=== PATIENT | female | born 1950 | race Caucasian/White ===

== ENCOUNTER 2016-10-13 19:15 | Inpatient (IN) | payer OTHER ==
[~2016-10-13] VITALS: Ht 160 cm; Wt 76.0 kg
[~2016-10-13 19:15] MED LIST: NO MEDS
[2016-10-13] MEDS ORDERED: OCTREOTIDE 50 MCG in SOD CHLORIDE 0.9% 25 ML IVPB STA (19:56)
[2016-10-13] MEDS ORDERED: PANTOPRAZOLE IV 80 MG in SOD CHLORIDE 0.9% 100 ML IVPB STA (19:56)
[2016-10-13] MEDS ORDERED: CEFTRIAXONE 1 GM/50 ML (PMX) 50 ML IVPB STA (19:56)
[2016-10-13] MEDS ORDERED: SOD CHLORIDE 0.9% 500 ML IV STA (19:56)
[2016-10-13] MEDS ORDERED: OCTREOTIDE 500 MCG in SOD CHLORIDE 0.9% 49 ML IV STA (19:56)
[2016-10-13] MEDS ORDERED: OMEG-135 PO (20:26)
[2016-10-13 20:31] LABS: BASOPHILS % 0.3 % (0.0-2.0); EOSINOPHILS # 0.2 10^3/ul (0.0-0.5); HEMATOCRIT 22.6 % (37.0-47.0); HEMOGLOBIN 7.6 g/dl (12.0-16.0); LYMPHOCYTES # 2.1 10^3/ul (0.8-2.9); LYMPHOCYTES % 37.2 % (15.0-51.0); MEAN CORPUSCULAR HEMOGLOBIN 31.7 pg (29.0-33.0); MEAN CORPUSCULAR HGB CONC 33.6 g/dl (32.0-37.0); MEAN CORPUSCULAR VOLUME 94.2 fl (82.0-101.0); MEAN PLATELET VOLUME 10.6 fl (7.4-10.4); MONOCYTE # 0.6 10^3/ul (0.3-0.9); MONOCYTES % 10.3 % (0.0-11.0); NEUTROPHIL # 2.8 10^3/ul (1.6-7.5); PLATELET COUNT 126 10^3/UL (140-415); RED CELL DISTRIBUTION WIDTH 13.5 % (11.5-14.5); WHITE BLOOD COUNT 5.7 10^3/ul (4.8-10.8)
[2016-10-13] MEDS ORDERED: CHOL500010 PO (20:34)
[2016-10-13] MEDS ORDERED: GINK120T3 PO (20:35)
[2016-10-13] MEDS ORDERED: MULTI PO (20:36)
[2016-10-13] MEDS ORDERED: VIT1TABL46 PO (20:37)
[2016-10-13] MEDS ORDERED: SOD CHLORIDE 0.9% 250 ML IV ONE (20:41)
[2016-10-13] MEDS ORDERED: VITA1TAB83 PO (20:42)
[2016-10-13 20:56] LABS: INR 0.99; PROTIME 13.1 Sec (12.2-14.2)
[2016-10-13 20:57] LABS: PARTIAL THROMBOPLASTIN TIME 26.1 Sec (25.0-35.0)
--- NOTE | 2016-10-13 20:58 | RADRPT ---
PROCEDURE: Portable chest x-ray. CLINICAL INDICATION: Upper GI bleed. TECHNIQUE: Portable AP view of the chest. COMPARISON: None. FINDINGS: No pulmonary edema or conolidation is identified. The cardiac silhouette is magnified. No pleural effusion is seen. There is no pneumothorax. IMPRESSION: 1. No evidence of acute cardiopulmonary disease. RPTAT: HTAR .Jarvis Smith MD, MD Date Time Electronically viewed and signed by .Jarvis Smith MD, on 10/13/2016 20:57 .R/
[2016-10-13 21:06] LABS: ALANINE AMINOTRANSFERASE 112 IU/L (13-69); ALBUMIN 3.5 g/dl (3.3-4.9); ALBUMIN/GLOBULIN RATIO 1.16; ALKALINE PHOSPHATASE 160 IU/L (42-121); ANION GAP 16 (8-16); ASPARTATE AMINO TRANSFERASE 136 IU/L (15-46); BILIRUBIN,INDIRECT 0.3 mg/dl (0-1.1); BILIRUBIN,TOTAL 0.3 mg/dl (0.2-1.3); BLOOD UREA NITROGEN 17 mg/dl (7-20); CALCIUM 9.1 mg/dl (8.4-10.2); CARBON DIOXIDE 29 mmol/L (21-31); CHLORIDE 100 mmol/L (97-110); GLUCOSE 116 mg/dl (70-220); SODIUM 141 mmol/L (135-144); TOTAL PROTEIN 6.5 g/dl (6.1-8.1)
[2016-10-13 21:41] LABS: TROPONIN-I < 0.012 ng/ml (0.00-0.12)
[2016-10-13] MEDS ORDERED: ACETAMINOPHEN 325 MG TAB PO PRN (22:00)
[2016-10-13] MEDS ORDERED: ONDANSETRON 4 MG INJ IV PRN (22:00)
--- NOTE | 2016-10-13 22:30 | ERA ---
ER Documentation Chief Complaint Date/Time DATE: 10/13/16 TIME: 22:23 Chief Complaint vomiting blood/blood in stool x 1 day, referred by pmd, hx of liver ca HPI 66-year-old female with a history of liver cancer presenting with 4 days of dark , tarry stools and one episode of coffee-ground emesis yesterday. She spoke with her primary care doctor, who sent her to the ED. She denies any chest pain , shortness of breath, headache, dizziness. She has never had these symptoms before. She denies any NSAID use. She has never had an endoscopy, so it is unknown if she has a history of varices. Currently she only complains of very minimal epigastric pain that is nonradiating. ROS All systems reviewed and are negative except as per history of present illness. Medications Home Meds Reported Medications Vitamin B Complex* (Vitamin B Complex*) 1 Each Tablet, 1 TAB PO DAILY, TAB ADULT GUMMIES 10/13/16 Multivitamins* (Theragran*) 1 Tab Tab, 1 TAB PO DAILY, TAB WOMEN 50+ 10/13/16 Ginkgo Biloba* (Ginkgo Biloba*) 120 Mg Tablet, 120 MG PO DAILY, TAB 10/13/16 Cholecalciferol (Vitamin D3) 5,000 Unit Tablet, 5000 UNIT PO DAILY, TAB 10/13/16 Webster-3 Fatty Acids/Fish Oil (Fish Oil 1,000 mg Capsule) 1 Each Capsule, 2 CAP PO BID, CAP 10/13/16 Discontinued Reported Medications Vitamin B Complex (B Complex # 1) 1 Each Tablet, 1 EACH PO, TAB 10/13/16 [No Meds] No Conflict Check 10/29/15 Allergies Allergies: Coded Allergies: No Known Allergy (Unverified , 10/13/16) PMhx/Soc History of Surgery: Yes (liver tumor removed, open choley) Anesthesia Reaction: No Hx Neurological Disorder: No Hx Respiratory Disorders: No Hx Cardiac Disorders: No Hx Psychiatric Problems: No Hx Miscellaneous Medical Probl: Yes (LIVER CA) Hx Alcohol Use: No Hx Substance Use: No Hx Tobacco Use: No Smoking Status: Never smoker FmHx Family History: No diabetes Physical Exam Vitals Vital Signs Date Time Temp Pulse Resp B/P Pulse Ox O2 Delivery O2 Flow Rate FiO2 10/13/16 19:50 98.0 91 20 147/64 100 Room Air 10/13/16 19:19 98.0 95 20 133/60 98 Physical Exam Const: Well-appearing, pleasant, no apparent distress Head: Atraumatic Eyes: Normal Conjunctiva ENT: Normal External Ears, Nose and Mouth. No scleral icterus Neck: Full range of motion..~ No meningismus. Resp: Clear to auscultation bilaterally Cardio: Regular rate and rhythm, no murmurs Abd: Soft, non tender, non distended. No obvious ascites. Normal bowel sounds Skin: No petechiae or rashes, no jaundice Back: No midline or flank tenderness Ext: No cyanosis, or edema Neur: Awake and alert and oriented 3, cranial nerves intact, strength and sensations intact in all 4 extremities Psych: Normal Mood and Affect Result Diagram: 10/13/16201910/13/162019 Results 24 hrs Laboratory Tests Test 10/13/16 20:20 White Blood Count 5.710^3/ul Red Blood Count 2.4010^6/ul Hemoglobin 7.6g/dl Hematocrit 22.6% Mean Corpuscular Volume 94.2fl Mean Corpuscular Hemoglobin 31.7pg Mean Corpuscular Hemoglobin Concent 33.6g/dl Red Cell Distribution Width 13.5% Platelet Count 53878^3/UL Mean Platelet Volume 10.6fl Neutrophils % 49.0% Lymphocytes % 37.2% Monocytes % 10.3% Eosinophils % 3.0% Basophils % 0.3% Nucleated Red Blood Cells % 0.0/100WBC Neutrophils # 2.810^3/ul Lymphocytes # 2.110^3/ul Monocytes # 0.610^3/ul Eosinophils # 0.210^3/ul Basophils # 0.010^3/ul Nucleated Red Blood Cells # 0.010^3/ul Prothrombin Time 13.1Sec Prothrombin Time Ratio 1.0 INR International Normalized Ratio 0.99 Activated Partial Thromboplast Time 26.1Sec Sodium Level 141mmol/L Potassium Level 4.0mmol/L Chloride Level 100mmol/L Carbon Dioxide Level 29mmol/L Anion Gap 16 Blood Urea Nitrogen 17mg/dl Creatinine 0.80mg/dl Glucose Level 116mg/dl Calcium Level 9.1mg/dl Total Bilirubin 0.3mg/dl Direct Bilirubin 0.00mg/dl Indirect Bilirubin 0.3mg/dl Aspartate Amino Transf (AST/SGOT) 136IU/L Alanine Aminotransferase (ALT/SGPT) 112IU/L Alkaline Phosphatase 160IU/L Troponin I < 0.012ng/ml Total Protein 6.5g/dl Albumin 3.5g/dl Globulin 3.00g/dl Albumin/Globulin Ratio 1.16 Lipase 451U/L Current Medications Medications (Trade) Dose Ordered Sig/Siobhan Route PRN Reason Start Time Stop Time Status Last Admin Dose Admin Sodium Chloride 500 ml @ 500 mls/hr Q1H STAT IV 10/13/16 19:56 10/13/16 20:55 DC 10/13/16 20:37 Pantoprazole 80 mg/Sodium Chloride 100 ml @ 400 mls/hr ONCE STAT IVPB 10/13/16 19:56 10/13/16 20:10 DC 10/13/16 20:54 Octreotide Acetate 50 mcg/ Sodium Chloride 26 ml @ 100 mls/hr Q16M STAT IVPB 10/13/16 19:56 10/13/16 20:11 DC 10/13/16 20:55 Octreotide Acetate 500 mcg/ Sodium Chloride 50 ml @ 5 mls/hr ONCE STAT IV 10/13/16 19:56 10/14/16 05:55 10/13/16 21:09 Ceftriaxone Sodium 50 ml @ 100 mls/hr ONCE STAT IVPB 10/13/16 19:56 10/13/16 20:25 DC 10/13/16 20:37 Sodium Chloride (NS) 250 ml @ 0 mls/hr Q0M ONCE IV 10/13/16 20:41 10/13/16 20:44 DC 10/13/16 21:25 Ondansetron HCl (Zofran Inj) 4 mg ER BRIDGE PRN IV NAUSEA AND/OR VOMITING 10/13/16 22:00 10/14/16 21:59 Acetaminophen (Tylenol Tab) 650 mg ER BRIDGE PRN PO MILD PAIN/FEVER 10/13/16 22:00 10/14/16 21:59 Procedures/MDM EMERGENT LABS AND DIAGNOSTIC STUDIES: Lab Results above were reviewed and interpreted by me. CBC: Anemia, mild thrombocytopenia CMP: No evidence of electrolyte abnormality, renal failure, hypoglycemia. Transaminitis noted Lipase: no evidence of pancreatitis Troponin within normal limits 12-lead EKG was interpreted by Van Robledo MD: Normal Sinus Rhythm Normal axis Normal intervals No acute ST or T wave changes suggestive of acute ischemia or STEMI. Radiology Results as interpreted by Radiology below were reviewed by Kolton Robledo MD: Chest x-ray shows no acute abnormalities Initial Nursing notes reviewed. Previous Medical Records requested via the Electronic Health Record. EMERGENCY DEPARTMENT COURSE / MEDICAL DECISION MAKING: Patient is presenting with symptoms of an upper GI bleed. She is hemodynamically stable at this time with no active hematemesis. IV fluids were started. She was started on IV pantoprazole and octreotide. Rocephin was given prophylactically for possible variceal bleed. Her labs showed evidence of anemia of 7.6. 1 unit of PRBCs was ordered and transfused. Patient will be admitted for further GI workup. She is stable for telemetry at this time. I spoke with the admitting doctor, who agrees. Critical Care Time: 35 minutes Treatments/Evaluations: Close monitoring and treatment of unstable vital signs, cardiorespiratory, and neurologic status, while maintaining tight balance of fluid, respiratory, and cardiac interventions. This time includes discussing the case with the patient and the patients family. This time does not include all procedures stated elsewhere in this record. This time also includes reviewing old records, labs and radiological studies. This time includes examining and re-examining the patient. Additionally, this time also includes arranging care with admitting and consulting physicians. Accepting Care Team: Current data and ongoing care discussed. Time: Time of admission Primary Provider: Juan Jose Lee Consulting: none Outstanding Data: none Departure Diagnosis: Primary Impression: Upper GI bleeding Additional Impression: Anemia Qualified Code: D64.9 - Anemia, unspecified type Condition: Serious CHARIS ROBLEDO MD Oct 13, 2016 22:30
[2016-10-14] VITALS (16 sets, daily range): BP systolic 102–127; BP diastolic 56–66; PULSE 61–83; RESP 17–22; TEMP 98; Ht 160 cm; Wt 76.0 kg
[2016-10-14] MEDS: DEXTROSE 5%-0.45% NACL 1,000 ML IV SCH ×4 (00:45→22:33)
[2016-10-14] MEDS ORDERED: morphine 2 MG INJ IV PRN (01:00)
[2016-10-14] MEDS ORDERED: NACL 0.9% 3 ML SYG IV SCH (01:00)
[2016-10-14] MEDS ORDERED: MAGNESIUM HYDROXIDE 30ML CUP PO PRN (01:00)
[2016-10-14] MEDS ORDERED: DOCUSATE SODIUM 100 MG CAP PO PRN (01:00)
[2016-10-14] MEDS ORDERED: ACETAMINOPHEN 325 MG TAB PO PRN (01:00)
[2016-10-14] MEDS ORDERED: ONDANSETRON 4 MG INJ IV PRN (01:00)
[2016-10-14] MEDS: PANTOPRAZOLE 40 MG INJ IV SCH (07:00)
--- NOTE | 2016-10-14 11:05 | HP ---
Date/Time of Note Date/Time of Note DATE: 10/14/16 TIME: 11:00 Assessment/Plan VTE Prophylaxis VTE Prophylaxis Intervention: SCD's Lines/Catheters IV [facility]from [facility] Saline Lock Urinary Cath still in place: No Assessment/Plan Chief Complaint/Hosp Course 1. Anemia 2. Hematoemesis 3. Hs of black stool 4. Obesity 5. Hypertension, controlled 6. hx of liver cancer 7. S/p open chelecystectomy 8. S/p polyp removal 2015 Problems: HPI/ROS Admit Date/Time Admit Date/Time Oct 13, 2016 at 21:47 Hx of Present Illness vomiting blood/blood in stool x 1 day, referred by pmd, hx of liver ca HPI 66-year-old female with a history of liver cancer presenting with 4 days of dark , tarry stools and one episode of coffee-ground emesis. She was sent to ER by her primary care provider. ROS Constitutional: poor po Eyes: no complaints ENT: no complaints Cardiovascular: chest pain, edema, no complaints, No lightheadedness, No orthopenea, No other, No palpitations, No paroxysmal nocturnal dyspnea Gastrointestinal: decreased appetite, pain (epigastric), passing stool (tarry) Genitourinary: bleeding, no complaints, No discharge, No dysuria, No flank pain, No hematuria, No other Musculoskeletal: back pain, bone/joint pain, No neck pain, No no complaints, No other, No restricted range of motion, No swelling Skin: bruising, erythema, No laceration, No no complaints, No other, No pruritis, No rash, No skin lesions PMH/Family/Social Past Medical History Medical History: coronary artery disease, high cholesterol, hypertension, other (liver cancer) Past Surgical History Past Surgical Hx: cholecystectomy, other (s/p liver lesion (cancerous) removal , open cheolecystectomy, both 2013) Family History Significant Family History: no pertinent family hx Social History Alcohol Use: none Smoking Status: Never smoker Drug Use: none Exam/Review of Systems Vital Signs Vitals Vital Signs Date Time Temp Pulse Resp B/P Pulse Ox O2 Delivery O2 Flow Rate FiO2 10/14/16 10:35 98.4 61 18 117/61 Room Air 10/14/16 08:30 95 Intake and Output 10/13/16 10/13/16 10/14/16 15:00 23:00 07:00 Intake Total 350 ml Balance 350 ml Labs Result Diagram: 10/13/16201910/13/162019 Medications Medications Current Medications Dextrose/Sodium Chloride (D5-1/2ns) 1,000 ml @ 75 mls/hr [id number] IV Last administered on 10/14/16 10:20; Admin Dose 75 MLS/HR; Start 10/14/16 at 00:45 Ondansetron HCl (Zofran Inj) 4 mg Q6H PRN IV NAUSEA AND/OR VOMITING; Start at 01:00 Acetaminophen (Tylenol Tab) 650 mg Q6H PRN PO PAIN LEVEL 1-3 OR FEVER; Start at 01:00 Morphine Sulfate (morphine) 2 mg Q4H PRN IV SEVERE PAIN LEVEL 7-10; Start 10/14 at 01:00 Docusate Sodium (Colace) 100 mg Q12H PRN PO CONSTIPATION; Start 10/14/16 at 01: 00 Magnesium Hydroxide (Milk Of Mag) 30 ml DAILY PRN PO CONSTIPATION; Start at 01:00 Pantoprazole (Protonix Iv) 40 mg DAILY@06 IV Last administered on 10/14/16 07: 00; Admin Dose 40 MG; Start 10/14/16 at 06:00 [place] Oct 14, 2016 11:05
[2016-10-14 11:34] LABS: BASOPHILS % 0.4 % (0.0-2.0); EOSINOPHILS # 0.1 10^3/ul (0.0-0.5); HEMATOCRIT 30.2 % (37.0-47.0); LYMPHOCYTES # 1.5 10^3/ul (0.8-2.9); LYMPHOCYTES % 32.9 % (15.0-51.0); MEAN CORPUSCULAR HEMOGLOBIN 31.1 pg (29.0-33.0); MEAN CORPUSCULAR HGB CONC 33.8 g/dl (32.0-37.0); MEAN CORPUSCULAR VOLUME 92.1 fl (82.0-101.0); MEAN PLATELET VOLUME 11.5 fl (7.4-10.4); MONOCYTE # 0.6 10^3/ul (0.3-0.9); MONOCYTES % 11.8 % (0.0-11.0); NEUTROPHIL # 2.4 10^3/ul (1.6-7.5); NEUTROPHILS % 51.5 % (39.0-77.0); PLATELET COUNT 124 10^3/UL (140-415); RED BLOOD COUNT 3.28 10^6/ul (4.20-5.40); RED CELL DISTRIBUTION WIDTH 14.1 % (11.5-14.5); WHITE BLOOD COUNT 4.7 10^3/ul (4.8-10.8)
[2016-10-14 11:39] LABS: HEMOGLOBIN 10.2 g/dl (12.0-16.0)
[2016-10-14 11:54] LABS: CALCIUM 8.6 mg/dl (8.4-10.2); CREATININE 0.75 mg/dl (0.44-1.00); POTASSIUM 4.4 mmol/L (3.5-5.1)
--- NOTE | 2016-10-14 12:52 | CONS ---
Date/Time of Note Date/Time of Note DATE: 10/14/16 TIME: 12:50 Assessment/Plan Assessment/Plan Additional Assessment/Plan #1 GI bleeding mostly upper 2. Severe anemia 3. Cirrhosis of liver 4. Liver resection for a possible hepatocellular carcinoma 5. Last colonoscopy last year polyp was removed 6. Status post cholecystectomy 7. Hypertension Plan Continue PPI Transfusion EGD to identify the source of bleeding and perform therapeutic endoscopy at the same time Alpha-fetoprotein Sonogram of the liver Consultation Date/Type/Reason Admit Date/Time Oct 13, 2016 at 21:47 Reason for Consultation GI bleeding, manifested in the form of hematemesis and melanotic stool Eyes: no complaints ENT: no complaints Cardiovascular: chest pain, edema, no complaints, No lightheadedness, No orthopenea, No other, No palpitations, No paroxysmal nocturnal dyspnea Gastrointestinal: decreased appetite, pain (epigastric), passing stool (tarry) Genitourinary: bleeding, no complaints, No discharge, No dysuria, No flank pain, No hematuria, No other Musculoskeletal: back pain, bone/joint pain, No neck pain, No no complaints, No other, No restricted range of motion, No swelling Skin: bruising, erythema, No laceration, No no complaints, No other, No pruritis, No rash, No skin lesions Past Medical History Medical History: coronary artery disease, high cholesterol, hypertension, other (liver cancer) Past Surgical History Past Surgical Hx: cholecystectomy, other (s/p liver lesion (cancerous) removal , open cheolecystectomy, both 2013) Family History Significant Family History: cancer, hypertension Social History Alcohol Use: none Smoking Status: Never smoker Drug Use: none Exam/Review of Systems Vital Signs Vitals Vital Signs Date Time Temp Pulse Resp B/P Pulse Ox O2 Delivery O2 Flow Rate FiO2 10/14/16 12:30 76 10/14/16 11:09 97.6 17 117/66 98 10/14/16 10:35 Room Air Intake and Output 10/13/16 10/13/16 10/14/16 15:00 23:00 07:00 Intake Total 350 ml Balance 350 ml Exam Constitutional: alert, oriented, well developed Psych: nl mood/affect, no complaints Head: atraumatic, normocephalic Eyes: EOMI, PERRL, nl conjunctiva, nl lids, nl sclera ENMT: nl external ears & nose, nl lips & teeth, nl nasal mucosa & septum Neck: non-tender, supple Respiratory: clear to auscultation, normal air movement Cardiovascular: nl pulses, regular rate and rhythm Gastrointestinal: nl liver, spleen, non-tender, soft Musculoskeletal: nl extremities to inspection, nl gait and stance Extremities: normal pulses Neurological: PHOTOGRAPHER II-XII intact, nl mental status, nl speech, nl strength Skin: nl turgor, No rash or lesions Lymph: nl lymph nodes Results Result Diagram: 10/14/16 1110 10/14/16 1109 Results 24 hrs Laboratory Tests Test 10/13/16 20:20 10/14/16 11:09 10/14/16 11:10 White Blood Count 5.7 4.7 L Red Blood Count 2.40 L 3.28 #L Hemoglobin 7.6 L 10.2 #L Hematocrit 22.6 L 30.2 #L Mean Corpuscular Volume 94.2 92.1 Mean Corpuscular Hemoglobin 31.7 31.1 Mean Corpuscular Hemoglobin Concent 33.6 33.8 Red Cell Distribution Width 13.5 14.1 Platelet Count 126 L 124 L Mean Platelet Volume 10.6 H 11.5 H Neutrophils % 49.0 51.5 Lymphocytes % 37.2 32.9 Monocytes % 10.3 11.8 H Eosinophils % 3.0 3.0 Basophils % 0.3 0.4 Nucleated Red Blood Cells % 0.0 0.0 Neutrophils # 2.8 2.4 Lymphocytes # 2.1 1.5 Monocytes # 0.6 0.6 Eosinophils # 0.2 0.1 Basophils # 0.0 0.0 Nucleated Red Blood Cells # 0.0 0.0 Prothrombin Time 13.1 Prothrombin Time Ratio 1.0 INR International Normalized Ratio 0.99 Activated Partial Thromboplast Time 26.1 Sodium Level 141 140 Potassium Level 4.0 4.4 Chloride Level 100 104 Carbon Dioxide Level 29 26 Anion Gap 16 14 Blood Urea Nitrogen 17 14 Creatinine 0.80 0.75 Glucose Level 116 128 Calcium Level 9.1 8.6 Total Bilirubin 0.3 Direct Bilirubin 0.00 Indirect Bilirubin 0.3 Aspartate Amino Transf (AST/SGOT) 136 H Alanine Aminotransferase (ALT/SGPT) 112 H Alkaline Phosphatase 160 H Troponin I < 0.012 Total Protein 6.5 Albumin 3.5 Globulin 3.00 Albumin/Globulin Ratio 1.16 Lipase 451 H Medications Medications Current Medications Dextrose/Sodium Chloride (D5-1/2ns) 1,000 ml @ 75 mls/hr [id number] IV Last administered on 10/14/16 10:20; Admin Dose 75 MLS/HR; Start 10/14/16 at 00:45 Ondansetron HCl (Zofran Inj) 4 mg Q6H PRN IV NAUSEA AND/OR VOMITING; Start at 01:00 Acetaminophen (Tylenol Tab) 650 mg Q6H PRN PO PAIN LEVEL 1-3 OR FEVER; Start at 01:00 Morphine Sulfate (morphine) 2 mg Q4H PRN IV SEVERE PAIN LEVEL 7-10; Start 10/14 at 01:00 Docusate Sodium (Colace) 100 mg Q12H PRN PO CONSTIPATION; Start 10/14/16 at 01: 00 Magnesium Hydroxide (Milk Of Mag) 30 ml DAILY PRN PO CONSTIPATION; Start at 01:00 Pantoprazole (Protonix Iv) 40 mg DAILY@06 IV Last administered on 10/14/16 07: 00; Admin Dose 40 MG; Start 10/14/16 at 06:00 ELIZABETH BAUTISTA MD Oct 14, 2016 12:52
[2016-10-15] VITALS (11 sets, daily range): BP systolic 103–131; BP diastolic 53–69; PULSE 62–77; RESP 18–20
[2016-10-15] MEDS ORDERED: BIMA2.5D BOTH EYES (01:39)
--- NOTE | 2016-10-15 02:25 | RADRPT ---
PROCEDURE: US Abdomen (right upper quadrant). CLINICAL INDICATION: Hepatocellular carcinoma TECHNIQUE: Multiple real-time longitudinal and transverse images of the right upper quadrant of th e abdomen were acquired utilizing a curved array transducer. Images were reviewed on a high-resoluti on PACS workstation. COMPARISON: None FINDINGS: The liver is normal in size and echogenicity. There is a heterogeneous, hyperechoic, vascular mass in the anterior aspect of right lobe of liver w hich measures 8.0 x 6.4 x 8.7 cm. The gallbladder is normal. There is no pericholecystic fluid or gallbladder wall thickening or gallstones. No intra or extrahepatic biliary dilatation is seen. The common bile duct measures 3.3 mm in maximal dimension. The visualized portions of the pancreas are unremarkable with obscuration of the tail of the pancrea s. No free fluid is identified. The right kidney measures 10.1 cm in length. There is normal echogenicity within the right kidney. There is no perinephric fluid collection. No hydronephrosis, mass, or calculus is seen. IMPRESSION: 1. 8.0 cm heterogeneous, hyperechoic mass in the anterior aspect of right lobe of liver. Given the provided history of hepatocellular carcinoma, triphasic CT liver is suggested for further evaluatio n. RPTAT: HLDM .Nirav Lama MD, Date Time Electronically viewed and signed by .Nirav Lama MD, on 10/15/2016 02:25 .M/
[2016-10-15] MEDS: DEXTROSE 5%-0.45% NACL 1,000 ML IV SCH ×2 (03:25→15:51)
[2016-10-15 06:11] LABS: BASOPHILS % 0.2 % (0.0-2.0); EOSINOPHILS # 0.2 10^3/ul (0.0-0.5); EOSINOPHILS % 3.9 % (0.0-7.0); HEMATOCRIT 27.7 % (37.0-47.0); HEMOGLOBIN 9.2 g/dl (12.0-16.0); LYMPHOCYTES # 1.4 10^3/ul (0.8-2.9); LYMPHOCYTES % 32.5 % (15.0-51.0); MEAN CORPUSCULAR HEMOGLOBIN 30.5 pg (29.0-33.0); MEAN CORPUSCULAR HGB CONC 33.2 g/dl (32.0-37.0); MEAN CORPUSCULAR VOLUME 91.7 fl (82.0-101.0); MEAN PLATELET VOLUME 11.3 fl (7.4-10.4); MONOCYTE # 0.5 10^3/ul (0.3-0.9); MONOCYTES % 11.3 % (0.0-11.0); NEUTROPHIL # 2.1 10^3/ul (1.6-7.5); NEUTROPHILS % 51.6 % (39.0-77.0); PLATELET COUNT 115 10^3/UL (140-415); RED BLOOD COUNT 3.02 10^6/ul (4.20-5.40); RED CELL DISTRIBUTION WIDTH 14.6 % (11.5-14.5); WHITE BLOOD COUNT 4.2 10^3/ul (4.8-10.8)
[2016-10-15] MEDS: PANTOPRAZOLE 40 MG INJ IV SCH (06:28)
[2016-10-15 06:31] LABS: ALBUMIN 2.8 g/dl (3.3-4.9); ALBUMIN/GLOBULIN RATIO 0.96; BILIRUBIN,INDIRECT 0.4 mg/dl (0-1.1); BILIRUBIN,TOTAL 0.4 mg/dl (0.2-1.3); CALCIUM 8.5 mg/dl (8.4-10.2); CREATININE 0.69 mg/dl (0.44-1.00); POTASSIUM 3.7 mmol/L (3.5-5.1); TOTAL PROTEIN 5.7 g/dl (6.1-8.1)
[2016-10-15] MEDS ORDERED: PROPOFOL 40 ML ONE (12:02)
[2016-10-15] MEDS ORDERED: BARIUM SULF 2% 450 ML BTL (BERRY SMOOTHIE) PO ONE (14:30)
--- NOTE | 2016-10-15 14:30 | CONS ---
Date/Time of Note Date/Time of Note DATE: 10/15/16 TIME: 14:29 Assessment/Plan Assessment/Plan Additional Assessment/Plan [facility]IENT [facility]SULT[facility] DATE OF SERVICE: 10/15/2016 PLACE OF SERVICE: [facility], fifth floor telemetry ASSESSMENT AND PLAN: A very-pleasant 66-year-old lady with multiple comorbid issues including prior liver resection for malignancy, presenting with upper GI bleeding and mass in the liver. This is concerning for residual malignancy in the liver. Prior records are missing and only available imaging for the liver is an ultrasound. Patient's thrombocytopenia appears to be borderline for candidacy for resection. More information is needed prior to decision-making regarding potential HPB surgical intervention. Explained to patient and answered all questions. Patient appeared to understand and agreed with the plans. With above assessment, I've recommended the followin. Continue current cares 2. Request outside records from [facility] 3. Liver dedicated triple phase IV axial images when able 4. Multidisciplinary tumor board presentation 5. Consider octreotide if concern for upper GI bleeding 6. Patient should be maintained on broad-spectrum antimicrobial therapy while concerns for upper GI bleeding exists Thank you very much for having me involved in the care of this very pleasant patient and wonderful family. If you have any questions, please feel free to contact me at [phone]. Nature of presenting problem: High severity Please note that, given the extensive number of diagnoses or management options , the extensive amount and/or complexity of data needed to be reviewed, and high risk of complications and/or morbidity or mortality, this qualifies as high complexity type of decision-making. Disclaimer: Inadvertent spelling and grammatical errors are likely due to EHR/ dictation software use and do not reflect on the quality of delivered patient care. Also, please note that the electronic time recorded on this node does not necessarily reflect the actual time of the visit. Updated clinical summary: A very-pleasant 66-year-old lady with multiple comorbid issues including prior liver resection for malignancy, presenting with upper GI bleeding and mass in the liver. Elevated alpha-fetoprotein 3180. Comorbidities: 1. History of liver resection and cholecystectomy in 2014 done at [facility] per patient's own report; no reported postoperative therapy ( reportedly for malignancy, possibly hepatocellular carcinoma); details missing 2. Coronary artery disease 3. Hypercholesterolemia 4. Hypertension 5. Severe anemia 6. Report of liver cirrhosis 7. Status post colonoscopy with removal polyp 8. GI bleeding with positive stool occult test CONSULTATION REQUESTED BY: Lidia Sevilla MD HISTORY OF PRESENT ILLNESS: The patient is a very pleasant 66-year-old lady with multiple comorbid issues including prior liver resection for malignancy, presenting with upper GI bleeding and mass in the liver. Patient reported 4 days of dark emesis as well as dark stool. No red blood seen in either. No major previous issues since surgery at [facility] in 2013. No reported chemotherapy or other types of therapy for the liver per patient's own report. No other major complaints during my visit. ALLERGIES: NO KNOWN DRUG ALLERGIES MEDICATIONS Documented in the electronic records and reviewed by me. Please see the electronic records for details, as well as details for inpatient medications which were also reviewed by me. SOCIAL HISTORY: The patient lives with family.-Tob;-ETOH;-IVDU FAMILY HISTORY: There are no significant medical, surgical or oncologic issues in the family as reported by the patient or reflected in the chart. REVIEW OF SYSTEMS: Other than mentioned above, there were no other pertinent positives or pertinent negatives in an otherwise complete 14 point review of systems. PHYSICAL EXAMINATION GENERAL: The patient appears to be a very pleasant lady of descent lying in bed, appearing stated age, and otherwise in no acute distress. BMI: 29.7 VITAL SIGNS: AVSS (please also see auto important data if available as well as the electronic records) HEENT: Normocephalic and atraumatic. Extraocular muscles and hearing are grossly intact bilaterally and symmetrically. Sclerae are nonicteric. Oral cavity is clear; oral mucosa appear to be pink and moist. Dentition: Poor ( full dentures on top). NECK: Supple. There is no lymphadenopathy or JVD. There is no submental, submandibular or supraclavicular lymphadenopathy. CHEST: Rises symmetrically with each breath; patient is breathing comfortably. There are no audible wheezes, rales or rhonchi on the gross exam. HEART: Pulse is regular and palpable on the right wrist. Capillary refill is normal. Carotid pulses are palpable bilaterally and symmetrically in the neck. EXTREMITIES: Lower extremities contain no pitting edema around the ankles bilaterally and symmetrically. ABDOMEN: Abdomen is soft, nontender and nondistended. No evidence of ascites, organomegaly, caput medusae, engorged subcutaneous veins, or other abnormalities. There are no peritoneal signs or guarding. SKIN: Appears to be pink and feels warm to touch. NEUROLOGIC: Awake, alert, and follows commands appropriately. LABORATORY DATA: See below IMAGING: See electronic chart. Please note that I've personally reviewed all pertinent available images and I agree in general with their overall reported findings. Right upper quadrant ultrasound [facility] 10/14/2016 IMPRESSION: 1. 8.0 cm heterogeneous, hyperechoic mass in the anterior aspect of right lobe of liver. Given the provided history of hepatocellular carcinoma, triphasic CT liver is suggested for further evaluation. Consultation Date/Type/Reason Admit Date/Time Oct 13, 2016 at 21:47 Eyes: no complaints ENT: no complaints Cardiovascular: chest pain, edema, no complaints, No lightheadedness, No orthopenea, No other, No palpitations, No paroxysmal nocturnal dyspnea Gastrointestinal: decreased appetite, pain (epigastric), passing stool (tarry) Genitourinary: bleeding, no complaints, No discharge, No dysuria, No flank pain, No hematuria, No other Musculoskeletal: back pain, bone/joint pain, No neck pain, No no complaints, No other, No restricted range of motion, No swelling Skin: bruising, erythema, No laceration, No no complaints, No other, No pruritis, No rash, No skin lesions Psychological: nl mood/affect, no complaints Past Medical History Medical History: coronary artery disease, high cholesterol, hypertension, other (liver cancer) Past Surgical History Past Surgical Hx: cholecystectomy, other (s/p liver lesion (cancerous) removal , open cheolecystectomy, both 2013) Social History Alcohol Use: none Smoking Status: Never smoker Drug Use: none Exam/Review of Systems Vital Signs Vitals Vital Signs Date Time Temp Pulse Resp B/P Pulse Ox O2 Delivery O2 Flow Rate FiO2 10/15/16 13:00 98.2 72 20 116/58 97 10/15/16 12:45 Room Air Intake and Output 10/14/16 10/14/16 10/15/16 15:00 23:00 07:00 Intake Total 350 ml 1600 ml 1000 ml Balance 350 ml 1600 ml 1000 ml Results Result Diagram: 10/15/1630 10/15/16 0530 Results 24 hrs Laboratory Tests Test 10/14/16 18:30 10/15/16 05:30 10/15/16 05:39 Stool Occult Blood POSITIVE White Blood Count 4.2 L Red Blood Count 3.02 L Hemoglobin 9.2 L Hematocrit 27.7 L Mean Corpuscular Volume 91.7 Mean Corpuscular Hemoglobin 30.5 Mean Corpuscular Hemoglobin Concent 33.2 Red Cell Distribution Width 14.6 H Platelet Count 115 L Mean Platelet Volume 11.3 H Neutrophils % 51.6 Lymphocytes % 32.5 Monocytes % 11.3 H Eosinophils % 3.9 Basophils % 0.2 Nucleated Red Blood Cells % 0.0 Neutrophils # 2.1 Lymphocytes # 1.4 Monocytes # 0.5 Eosinophils # 0.2 Basophils # 0.0 Nucleated Red Blood Cells # 0.0 Sodium Level 143 Potassium Level 3.7 Chloride Level 104 Carbon Dioxide Level 28 Anion Gap 15 Blood Urea Nitrogen 11 Creatinine 0.69 Glucose Level 122 Calcium Level 8.5 Total Bilirubin 0.4 Direct Bilirubin 0.00 Indirect Bilirubin 0.4 Aspartate Amino Transf (AST/SGOT) 145 H Alanine Aminotransferase (ALT/SGPT) 115 H Alkaline Phosphatase 124 H Total Protein 5.7 L Albumin 2.8 L Globulin 2.90 Albumin/Globulin Ratio 0.96 Alpha Fetoprotein 3180.00 H Lab Scanned Report BLOOD TRANSFUSION Medications Medications Current Medications Dextrose/Sodium Chloride (D5-1/2ns) 1,000 ml @ 75 mls/hr [id number] IV Last administered on 10/14/16t 22:33; Admin Dose 75 MLS/HR; Start 10/14/16 at 00:45 Ondansetron HCl (Zofran Inj) 4 mg Q6H PRN IV NAUSEA AND/OR VOMITING; Start at 01:00 Acetaminophen (Tylenol Tab) 650 mg Q6H PRN PO PAIN LEVEL 1-3 OR FEVER; Start at 01:00 Morphine Sulfate (morphine) 2 mg Q4H PRN IV SEVERE PAIN LEVEL 7-10; Start 10/14 at 01:00 Docusate Sodium (Colace) 100 mg Q12H PRN PO CONSTIPATION; Start 10/14/16 at 01: 00 Magnesium Hydroxide (Milk Of Mag) 30 ml DAILY PRN PO CONSTIPATION; Start at 01:00 Pantoprazole (Protonix Iv) 40 mg DAILY@06 IV Last administered on 10/15/16t 06: 28; Admin Dose 40 MG; Start 10/14/16 at 06:00 HIMANSHU VAZQUZE M.D. Oct 15, 2016 14:30
[2016-10-15] MEDS ORDERED: IOHEXOL 300MG/ML 150 ML BTL ONE (16:41)
[2016-10-15] MEDS ORDERED: SOD CHLORIDE 0.9% 100 ML ONE (16:41)
--- NOTE | 2016-10-15 16:52 | RADRPT ---
PROCEDURE: CT abdomen and pelvis with and without contrast. CLINICAL INDICATION: GI bleed. Liver mass. TECHNIQUE: CT scan of the abdomen without contrast was performed and is reconstructed at 5 mm cont iguous axial intervals from the dome of the diaphragm to the inferior pubic rami.. The patient was then injected with 100 cc of Omnipaque-300 and postcontrast axial imaging was performed in the arter ial and portal venous phase of the injection. Delayed imaging of the abdomen pelvis was then obtain ed. Sagittal and coronal reformatted images were obtained from the axial source images. The calculat ed radiation dose measures 2039 mGy centimeters. The CTDI measures 17 mGy. COMPARISON: Abdominal ultrasound earlier same date FINDINGS: The lung bases are clear of any infiltrate or nodule. No effusion is seen. Calcified granulomas see n in the inferior segment of the lingula. The liver is of normal size and attenuation with no ductal dilatation. There is lobulated contour to the liver compatible with cirrhosis. Noted is a 8.5 cm noncalcified mixed attenuation mass centered in the anterior segment of the left lobe of the liver. There is heterogeneous enhancement of this mass. The enhancement pattern is not typical for a hemangioma. This is suspicious for possible hep atoma. There is no evidence of portal venous invasion. No other hepatic mass is visualized. Multi ple gallstones are visualized. No splenic, adrenal or pancreatic abnormalities present. portal vei n is patent. There are left upper quadrant diana gastric varices. Kidneys enhance symmetrically and are of normal size and contour. No hydronephrosis, calculus or m asses seen. Ureters are of normal course and caliber with no stone. No bladder mass or stone is pr esent. Uterus and ovaries are normal. There is no aneurysm. No adenopathy is present. No bowel mass or obstruction is present. The appendix is normal. No phlegmon, ascites or pneumop eritoneum is visualized. Mild degenerative changes are seen in the spine. IMPRESSION: Large heterogeneously enhancing hypervascular mass right lobe of the liver which does not demonstrat e enhancement pattern typical for hemangioma. This is suspicious for a hepatoma. Nodular contour liver - rule out cirrhosis. Cholelithiasis. Perigastric left upper quadrant varices. Old granulomatous disease. Degenerative changes lumbar spine. .Jann Rico MD, MD Date Time Electronically viewed and signed by .Jann Rico MD, MD on 10/15/2016 16:51 .A/
--- NOTE | 2016-10-15 17:43 | PN ---
Date/Time of Note Date/Time of Note DATE: 10/15/16 TIME: 17:41 Assessment/Plan VTE Prophylaxis VTE Prophylaxis Intervention: other Lines/Catheters IV [facility]ter Type (from [facility]): Peripheral IV Urinary Cath still in place: No Assessment/Plan Chief Complaint/Hosp Course GI BLEED ANEMIA LIVER GARY HIGH A FETO PROTEIN PLAN PER GI Problems: Subjective 24 Hr Interval Summary Respiratory: no complaints Gastrointestinal: no complaints Skin: no complaints Neurologic: no complaints Exam/Review of Systems Vital Signs Vitals Vital Signs Date Time Temp Pulse Resp B/P Pulse Ox O2 Delivery O2 Flow Rate FiO2 10/15/16 16:14 77 10/15/16 13:00 98.2 20 116/58 97 10/15/16 12:45 Room Air Intake and Output 10/14/16 10/14/16 10/15/16 15:00 23:00 07:00 Intake Total 350 ml 1600 ml 1000 ml Balance 350 ml 1600 ml 1000 ml Exam Respiratory: clear to auscultation Cardiovascular: regular rate and rhythm Gastrointestinal: bowel sounds, soft Musculoskeletal: nl extremities to inspection Results Result Diagram: 10/15/16 0530 10/15/16 0530 Results 24 hrs Laboratory Tests Test 10/14/16 18:30 10/15/16 05:30 10/15/16 05:39 Stool Occult Blood POSITIVE White Blood Count 4.2 L Red Blood Count 3.02 L Hemoglobin 9.2 L Hematocrit 27.7 L Mean Corpuscular Volume 91.7 Mean Corpuscular Hemoglobin 30.5 Mean Corpuscular Hemoglobin Concent 33.2 Red Cell Distribution Width 14.6 H Platelet Count 115 L Mean Platelet Volume 11.3 H Neutrophils % 51.6 Lymphocytes % 32.5 Monocytes % 11.3 H Eosinophils % 3.9 Basophils % 0.2 Nucleated Red Blood Cells % 0.0 Neutrophils # 2.1 Lymphocytes # 1.4 Monocytes # 0.5 Eosinophils # 0.2 Basophils # 0.0 Nucleated Red Blood Cells # 0.0 Sodium Level 143 Potassium Level 3.7 Chloride Level 104 Carbon Dioxide Level 28 Anion Gap 15 Blood Urea Nitrogen 11 Creatinine 0.69 Glucose Level 122 Calcium Level 8.5 Total Bilirubin 0.4 Direct Bilirubin 0.00 Indirect Bilirubin 0.4 Aspartate Amino Transf (AST/SGOT) 145 H Alanine Aminotransferase (ALT/SGPT) 115 H Alkaline Phosphatase 124 H Total Protein 5.7 L Albumin 2.8 L Globulin 2.90 Albumin/Globulin Ratio 0.96 Alpha Fetoprotein 3180.00 H Lab Scanned Report BLOOD TRANSFUSION Medications Medications Current Medications Dextrose/Sodium Chloride (D5-1/2ns) 1,000 ml @ 75 mls/hr [id number] IV Last administered on 10/15/16 15:51; Admin Dose 75 MLS/HR; Start 10/14/16 at 00:45 Ondansetron HCl (Zofran Inj) 4 mg Q6H PRN IV NAUSEA AND/OR VOMITING; Start at 01:00 Acetaminophen (Tylenol Tab) 650 mg Q6H PRN PO PAIN LEVEL 1-3 OR FEVER; Start at 01:00 Morphine Sulfate (morphine) 2 mg Q4H PRN IV SEVERE PAIN LEVEL 7-10; Start 10/14 at 01:00 Docusate Sodium (Colace) 100 mg Q12H PRN PO CONSTIPATION; Start 10/14/16 at 01: 00 Magnesium Hydroxide (Milk Of Mag) 30 ml DAILY PRN PO CONSTIPATION; Start at 01:00 Pantoprazole (Protonix Iv) 40 mg DAILY@06 IV Last administered on 10/15/16 06: 28; Admin Dose 40 MG; Start 10/14/16 at 06:00 ENOCH SINCLAIR MD Oct 15, 2016 17:43
[2016-10-15] MEDS ORDERED: KETO5DRO59 OP (18:36)
[2016-10-15] MEDS ORDERED: PROP10DR3 BOTH EYES (18:38)
[2016-10-15] MEDS: KETOTIFEN FUMARATE XX SCH (19:00)
[2016-10-15] MEDS ORDERED: PROPYLENE GLYCOL/PEG 15 ML OPH BOTH EYES PRN (19:00)
[2016-10-15] MEDS: LATANOPROST 0.005% 2.5 ML OPH BOTH EYES SCH (20:19)
[2016-10-15] MEDS: KETOTIFEN FUMARATE BOTH EYES SCH (20:19)
[2016-10-15] MEDS ORDERED: BIMATOPROST 0.01% 2.5 ML BTL BOTH EYES SCH (21:00)
[2016-10-15] MEDS ORDERED: KETOTIFEN FUMARATE XX SCH (21:00)
[2016-10-16] MEDS: KETOTIFEN FUMARATE XX SCH ×3 (03:00→17:24)
[2016-10-16] MEDS: PANTOPRAZOLE 40 MG INJ IV SCH (05:26)
[2016-10-16] MEDS: DEXTROSE 5%-0.45% NACL 1,000 ML IV SCH ×2 (05:26→17:24)
[2016-10-16 08:22] VITALS: BP 116/61; RESP 18
[2016-10-16] MEDS: KETOTIFEN FUMARATE BOTH EYES SCH ×2 (09:31→20:35)
--- NOTE | 2016-10-16 10:40 | CONS ---
Date/Time of Note Date/Time of Note DATE: 10/16/16 TIME: 10:39 Consultation Date/Type/Reason Admit Date/Time Oct 13, 2016 at 21:47 Initial Consult Date 10/16/16 Type of Consultation: Anesthesiology Reason for Consultation Follow up 24 HR Interval Summary Free Text/Dictation Pt seen and examined at bedside is POD#1 s/p EGD for GI bleed and Hepatic mass. Pt received MAC sedation with Oxygen for procedure. She is resting comfortably and denies N/v. No intervention was done at the time of EGD but future interventions being planned with general surgeon. Will follow up. Exam/Review of Systems Vital Signs Vitals Vital Signs Date Time Temp Pulse Resp B/P Pulse Ox O2 Delivery O2 Flow Rate FiO2 10/16/16 08:22 97.6 70 18 116/61 99 10/15/16 12:45 Room Air Intake and Output 10/15/16 10/15/16 10/16/16 15:00 23:00 07:00 Intake Total 1130 ml 480 ml Balance 1130 ml 480 ml Results Result Diagram: 10/15/16 0530 10/15/16 0530 Medications Medications Current Medications Dextrose/Sodium Chloride (D5-1/2ns) 1,000 ml @ 75 mls/hr [id number] IV Last administered on 10/16/16 05:26; Admin Dose 75 MLS/HR; Start 10/14/16 at 00:45 Ondansetron HCl (Zofran Inj) 4 mg Q6H PRN IV NAUSEA AND/OR VOMITING; Start at 01:00 Acetaminophen (Tylenol Tab) 650 mg Q6H PRN PO PAIN LEVEL 1-3 OR FEVER; Start at 01:00 Morphine Sulfate (morphine) 2 mg Q4H PRN IV SEVERE PAIN LEVEL 7-10; Start 10/14 at 01:00 Docusate Sodium (Colace) 100 mg Q12H PRN PO CONSTIPATION; Start 10/14/16 at 01: 00 Magnesium Hydroxide (Milk Of Mag) 30 ml DAILY PRN PO CONSTIPATION; Start at 01:00 Pantoprazole (Protonix Iv) 40 mg DAILY@06 IV Last administered on 10/16/16 05: 26; Admin Dose 40 MG; Start 10/14/16 at 06:00 Polyethyl Glycol/ Propylene Glycol (Systane) 1 drop TID PRN BOTH EYES EYE LUBRICANT ; Start 10/15/16 at 19:00 Miscellaneous Information (*Order Clarification Bulletin) MEDICATION REQUIRES CLARIFICATION: Q8H XX ; Start 10/15/16 at 19:00 Latanoprost (Xalatan) 1 drop HS BOTH EYES Last administered on 10/15/16 20:19 ; Admin Dose 1 DROP; Start 10/15/16 at 21:00 Patient Own Medication 1 ea BID BOTH EYES Last administered on 10/16/16 09:31 ; Admin Dose 1 EA; Start 10/15/16 at 21:00 OWEN GOULD Oct 16, 2016 10:40
--- NOTE | 2016-10-16 10:52 | PQ ---
Date/Time of Note Date/Time of Note DATE: 10/16/16 TIME: 10:[address] Lee , A review of the medical record found a need for documentation clarification. patient admitted with GI bleeding and severe anemia with HGB 7.6 which improved to 10.2 after 2 units of blood transfusion. Anemia is documented, please further specify the diagnosis of Anemia. Thank you Please clarify a diagnosis being treated. To facilitate accurate and complete coding, please darion ( x ) the suspected diagnosis that apply: (x ) Acute blood loss anemia ( ) Chronic blood loss anemia ( ) Chronic anemia ( ) Other Please provide your response by clicking edit document,~ making~ your choice ( x ), click ok/save and finally click sign. You may also~ document your response~ on~ your progress notes. Thank you for your time. Yumiko SCHULZBS,CCS,CCDS [employer] [facility] Information Management, CD[facility] and Coding Services [phone] Room # 1525 - Coding [address]~ [id number] YUMIKO HUBBARD Oct 16, 2016 10:52 ENOCH LEE MD Oct 16, 2016 17:11
[2016-10-16 14:26] VITALS: BP 139/68; RESP 16
[2016-10-16] MEDS ORDERED: morphine 4 MG/ML VIAL IV PRN (14:30)
--- NOTE | 2016-10-16 15:17 | PN ---
Date/Time of Note Date/Time of Note DATE: 10/16/16 TIME: 15:17 Assessment/Plan Lines/Catheters IV Catheter Type (from [facility]): Saline Lock Katz in Place (from [facility]): No Assessment/Plan Assessment/Plan [facility] Progress Note Date of Service: 10/16/2016 Place of service: [facility] fourth floor Today's Assessment & Plan: Hepatocellular carcinoma in the setting of cirrhosis. Unresectable due to portal hypertension and background cirrhosis. This is based on careful review of approximately 100 pages of outside medical records (see below for details). Eligible for local liver directed therapy in the form of transarterial chemoembolization (TACE). I will ask my office to start working on getting the patient set up (needs to be done outside of [facility] since we do not have the program set up yet). May benefit from oncology consultation , although sorafenib has only been shown to have an 8 week survival advantage compared to controls in randomized trials. GI bleed management per gastroenterology. No indication for acute surgical intervention. Explained to patient and answered all questions. Patient appeared to understand and agreed with the plans. With above assessment, I've recommended the followin. Continue current cares 2. Outpatient TACE (I will ask my office to start the process) 3. Treat gastrointestinal bleeding per gastroenterology 4. Multidisciplinary tumor board presentation 5. Patient should be maintained on broad-spectrum antimicrobial therapy while concerns for upper GI bleeding exists Thank you very much for having me involved in the care of this very pleasant patient and wonderful family. If you have any questions, please feel free to contact me at [phone]. Nature of presenting problem: High severity Please note that, given the extensive number of diagnoses or management options , the extensive amount and/or complexity of data needed to be reviewed, and high risk of complications and/or morbidity or mortality, this qualifies as high complexity type of decision-making. Disclaimer: Inadvertent spelling and grammatical errors are likely due to EHR/ dictation software use and do not reflect on the quality of delivered patient care. Also, please note that the electronic time recorded on this node does not necessarily reflect the actual time of the visit. Updated clinical summary: A very-pleasant 66-year-old lady with multiple comorbid issues including prior liver resection for malignancy, presenting with upper GI bleeding and mass in the liver. Elevated alpha-fetoprotein 3180. Comorbidities: 1. History of liver mass and cirrhosis: initial reported symptoms 09/18/2013 to [facility] emergency department; ultrasound showing liver cirrhosis with 3 cm liver mass concerning for hepatocellular carcinoma. Also issues with gallbladder wall thickening without cholelithiasis or sonographic Power sign. Pelvic CT and abdominal CT 09/17/2013: cirrhotic liver with heterogeneously enhancing approximately 3.3 cm fat-containing mass in the inferior right hepatic lobe. [facility] 11/21/2013: Laparoscopic biopsy of liver mass 2, negative for malignancy per report (attending Laurel Mcgarry MD; home health assistant Fabiola Randolph MD); [facility] 03/25/2014: Wedge resection right hepatic lobe segment 6 mass 2 with intraoperative ultrasound (attending Laurel Mcgarry MD; home health assistant Cami Leyva MD); operative report indicated that there was a 3 mass in segment 4 of the liver on the preoperative workup which was not identified on ultrasound (presumably intraoperative ultrasound). EBL 1200 cc. Preop alpha-fetoprotein 3.21 March 2014. Final pathology showed well-differentiated hepatocellular carcinoma with 1 cm negative margins. No lymphovascular invasion. No perineural invasion. Glypican 3 focally weakly positive; CD34 positive; AFB negative; TTF-1 and HSA positive in cytoplasm. Loss reticulin fibers in the tumor. Stage [id number]. Additional finding of severe fibrosis and cirrhosis with high-grade dysplastic nodule and extensive steatosis. Total of 2 masses size 3 x 2.5 x 2.5 cm and 2 x 1.8 x 1.5 cm. 2. Coronary artery disease 3. Hypercholesterolemia 4. Hypertension 5. Severe anemia 6. Report of liver cirrhosis 7. Status post colonoscopy with removal polyp 8. GI bleeding with positive stool occult test 9. Glaucoma 10. Arthritis 11. Family history significant for mother with hypertension, Alzheimer's disease, and congestive heart failure. Sister with breast cancer at age 48. Nephew with benign brain tumor. Subjective: No major events or complaints; no major abd pain and under control with medications; no n/v/d; no sob or cp; + flatus; + BM and normal; + activity Objective: Vitals: See below I's & O's: See below Exam: GENERAL: On exam, the patient was lying in bed and appeared to be comfortable and in no acute distress. ABDOMEN: Soft, nontender and nondistended. There are no peritoneal signs or guarding. SKIN: Skin appears to be pink and feels warm to touch. NEUROLOGIC: Patient is awake, alert, and follows commands appropriately. Labs: See below Exam/Review of Systems Vital Signs Vitals Vital Signs Date Time Temp Pulse Resp B/P Pulse Ox O2 Delivery O2 Flow Rate FiO2 10/16/16 14:26 98.2 72 16 139/68 97 10/15/16 12:45 Room Air Intake and Output 10/15/16 10/15/16 10/16/16 15:00 23:00 07:00 Intake Total 1130 ml 480 ml Balance 1130 ml 480 ml Results Result Diagram: 10/15/16 0530 10/15/16 0530 HIMANSHU VAZQUEZ M.D. Oct 16, 2016 15:17
--- NOTE | 2016-10-16 18:03 | PN ---
Date/Time of Note Date/Time of Note DATE: 10/16/16 TIME: 18:01 Assessment/Plan VTE Prophylaxis VTE Prophylaxis Intervention: other Lines/Catheters IV Catheter Type (from Nrs): Saline Lock Urinary Cath still in place: No Assessment/Plan Chief Complaint/Hosp Course GI BLEED ANEMIA LIVER MASS HIGH ALPHA FETOPROTEIN PLAN PER GI DR REGALADO TO SEE Problems: Subjective 24 Hr Interval Summary Respiratory: no complaints Cardiovascular: no complaints Gastrointestinal: no complaints, No blood Exam/Review of Systems Vital Signs Vitals Vital Signs Date Time Temp Pulse Resp B/P Pulse Ox O2 Delivery O2 Flow Rate FiO2 10/16/16 14:26 98.2 72 16 139/68 97 10/15/16 12:45 Room Air Intake and Output 10/15/16 10/15/16 10/16/16 15:00 23:00 07:00 Intake Total 1130 ml 480 ml Balance 1130 ml 480 ml Exam Neck: supple Respiratory: clear to auscultation Cardiovascular: regular rate and rhythm Gastrointestinal: bowel sounds, soft Musculoskeletal: nl extremities to inspection Extremities: normal pulses Results Result Diagram: 10/15/16 0530 10/15/16 0530 Medications Medications Current Medications Dextrose/Sodium Chloride (D5-1/2ns) 1,000 ml @ 75 mls/hr [id number] IV Last administered on 10/16/16 17:24; Admin Dose 75 MLS/HR; Start 10/14/16 at 00:45 Ondansetron HCl (Zofran Inj) 4 mg Q6H PRN IV NAUSEA AND/OR VOMITING; Start at 01:00 Acetaminophen (Tylenol Tab) 650 mg Q6H PRN PO PAIN LEVEL 1-3 OR FEVER; Start at 01:00 Docusate Sodium (Colace) 100 mg Q12H PRN PO CONSTIPATION; Start 10/14/16 at 01: 00 Magnesium Hydroxide (Milk Of Mag) 30 ml DAILY PRN PO CONSTIPATION; Start at 01:00 Pantoprazole (Protonix Iv) 40 mg DAILY@06 IV Last administered on 10/16/16 05: 26; Admin Dose 40 MG; Start 10/14/16 at 06:00 Polyethyl Glycol/ Propylene Glycol (Systane) 1 drop TID PRN BOTH EYES EYE LUBRICANT ; Start 10/15/16 at 19:00 Miscellaneous Information (*Order Clarification Bulletin) MEDICATION REQUIRES CLARIFICATION: Q8H XX ; Start 10/15/16 at 19:00 Latanoprost (Xalatan) 1 drop HS BOTH EYES Last administered on 10/15/16 20:19 ; Admin Dose 1 DROP; Start 10/15/16 at 21:00 Patient Own Medication 1 ea BID BOTH EYES Last administered on 10/16/16 09:31 ; Admin Dose 1 EA; Start 10/15/16 at 21:00 Morphine Sulfate (morphine) 2 mg Q4H PRN IV SEVERE PAIN LEVEL 7-10; Start 10/16 at 14:30 ENOCH SINCLAIR MD Oct 16, 2016 18:03
[2016-10-16 19:36] VITALS: BP 125/58; RESP 20
[2016-10-16] MEDS: LATANOPROST 0.005% 2.5 ML OPH BOTH EYES SCH (20:35)
--- NOTE | 2016-10-16 22:11 | CONS ---
Date/Time of Note Date/Time of Note DATE: 10/16/16 TIME: 22:08 Assessment/Plan Assessment/Plan Additional Assessment/Plan Additional Assessment/Plan #1 GI bleeding,from gastric varicose veins 2. Severe anemia 3. Cirrhosis of liver 4. Liver resection for a possible hepatocellular carcinoma 5. Last colonoscopy last year polyp was removed 6. Status post cholecystectomy 7. Hypertension 8.hepatoma Plan Continue PPI Beta Kevin non selective TACE, Trance arterial chemoembolization Consultation Date/Type/Reason Admit Date/Time Oct 13, 2016 at 21:47 Initial Consult Date Type of Consultation: Anesthesiology 24 HR Interval Summary Constitutional: improved, no complaints Exam/Review of Systems Vital Signs Vitals Vital Signs Date Time Temp Pulse Resp B/P Pulse Ox O2 Delivery O2 Flow Rate FiO2 10/16/16 14:26 98.2 72 16 139/68 97 10/15/16 12:45 Room Air Intake and Output 10/15/16 10/15/16 10/16/16 15:00 23:00 07:00 Intake Total 1130 ml 480 ml Balance 1130 ml 480 ml Exam Constitutional: alert, oriented, well developed Psych: nl mood/affect, no complaints Head: atraumatic, normocephalic Eyes: EOMI, PERRL, nl conjunctiva, nl lids, nl sclera ENMT: nl external ears & nose, nl lips & teeth, nl nasal mucosa & septum Neck: non-tender, supple Respiratory: clear to auscultation, normal air movement Cardiovascular: nl pulses, regular rate and rhythm Gastrointestinal: nl liver, spleen, non-tender, soft Musculoskeletal: nl extremities to inspection, nl gait and stance Extremities: normal pulses Neurological: UNDERTAKER ASSISTANT II-XII intact, nl mental status, nl speech, nl strength Skin: nl turgor, No rash or lesions Lymph: nl lymph nodes Results Result Diagram: 10/15/1630 10/15/16 0530 Medications Medications Current Medications Dextrose/Sodium Chloride (D5-1/2ns) 1,000 ml @ 75 mls/hr [id number] IV Last administered on 10/16/16t 17:24; Admin Dose 75 MLS/HR; Start 10/14/16 at 00:45 Ondansetron HCl (Zofran Inj) 4 mg Q6H PRN IV NAUSEA AND/OR VOMITING; Start at 01:00 Acetaminophen (Tylenol Tab) 650 mg Q6H PRN PO PAIN LEVEL 1-3 OR FEVER; Start at 01:00 Docusate Sodium (Colace) 100 mg Q12H PRN PO CONSTIPATION; Start 10/14/16 at 01: 00 Magnesium Hydroxide (Milk Of Mag) 30 ml DAILY PRN PO CONSTIPATION; Start at 01:00 Pantoprazole (Protonix Iv) 40 mg DAILY@06 IV Last administered on 10/16/16 05: 26; Admin Dose 40 MG; Start 10/14/16 at 06:00 Polyethyl Glycol/ Propylene Glycol (Systane) 1 drop TID PRN BOTH EYES EYE LUBRICANT ; Start 10/15/16 at 19:00 Miscellaneous Information (*Order Clarification Bulletin) MEDICATION REQUIRES CLARIFICATION: Q8H XX ; Start 10/15/16 at 19:00 Latanoprost (Xalatan) 1 drop HS BOTH EYES Last administered on 10/16/16 20:35 ; Admin Dose 1 DROP; Start 10/15/16 at 21:00 Patient Own Medication 1 ea BID BOTH EYES Last administered on 10/16/16 20:35 ; Admin Dose 1 EA; Start 10/15/16 at 21:00 Morphine Sulfate (morphine) 2 mg Q4H PRN IV SEVERE PAIN LEVEL 7-10; Start 10/16 at 14:30 ELIZABETH BAUTISTA MD Oct 16, 2016 22:11
[2016-10-17] MEDS: KETOTIFEN FUMARATE XX SCH ×3 (01:13→19:00)
[2016-10-17 02:18] VITALS: BP 106/56; RESP 16
[2016-10-17] MEDS: DEXTROSE 5%-0.45% NACL 1,000 ML IV SCH (05:16)
[2016-10-17] MEDS: PANTOPRAZOLE 40 MG INJ IV SCH (05:16)
[2016-10-17 05:17] LABS: BASOPHILS % 0.6 % (0.0-2.0); EOSINOPHILS # 0.2 10^3/ul (0.0-0.5); HEMATOCRIT 29.9 % (37.0-47.0); HEMOGLOBIN 10.3 g/dl (12.0-16.0); LYMPHOCYTES # 1.1 10^3/ul (0.8-2.9); LYMPHOCYTES % 29.4 % (15.0-51.0); MEAN CORPUSCULAR HGB CONC 34.4 g/dl (32.0-37.0); MEAN CORPUSCULAR VOLUME 90.1 fl (82.0-101.0); MEAN PLATELET VOLUME 10.8 fl (7.4-10.4); MONOCYTE # 0.4 10^3/ul (0.3-0.9); MONOCYTES % 11.9 % (0.0-11.0); NEUTROPHIL # 1.9 10^3/ul (1.6-7.5); NEUTROPHILS % 53.1 % (39.0-77.0); PLATELET COUNT 130 10^3/UL (140-415); RED BLOOD COUNT 3.32 10^6/ul (4.20-5.40); RED CELL DISTRIBUTION WIDTH 13.6 % (11.5-14.5); WHITE BLOOD COUNT 3.6 10^3/ul (4.8-10.8)
[2016-10-17 05:34] LABS: ALBUMIN 3.2 g/dl (3.3-4.9); ALBUMIN/GLOBULIN RATIO 1.06; BILIRUBIN,INDIRECT 0.5 mg/dl (0-1.1); BILIRUBIN,TOTAL 0.5 mg/dl (0.2-1.3); CALCIUM 8.6 mg/dl (8.4-10.2); CREATININE 0.71 mg/dl (0.44-1.00); POTASSIUM 3.8 mmol/L (3.5-5.1); TOTAL PROTEIN 6.2 g/dl (6.1-8.1)
[2016-10-17] MEDS: LATANOPROST 0.005% 2.5 ML OPH BOTH EYES SCH (08:14)
[2016-10-17] MEDS: KETOTIFEN FUMARATE BOTH EYES SCH (08:55)
[2016-10-17 09:02] VITALS: BP 135/70; RESP 16
--- NOTE | 2016-10-17 11:11 | CONS ---
Date/Time of Note Date/Time of Note DATE: 10/17/16 TIME: 11:10 Assessment/Plan Assessment/Plan Additional Assessment/Plan Additional Assessment/Plan Additional Assessment/Plan #1 GI bleeding,from gastric varicose veins 2. Severe anemia 3. Cirrhosis of liver 4. Liver resection for a possible hepatocellular carcinoma 5. Last colonoscopy last year polyp was removed 6. Status post cholecystectomy 7. Hypertension 8.hepatoma Plan Continue PPI Beta Kevin non selective TACE, Trance arterial chemoembolization Consultation Date/Type/Reason Admit Date/Time Oct 13, 2016 at 21:47 Type of Consultation: Anesthesiology 24 HR Interval Summary Constitutional: improved, no complaints Exam/Review of Systems Vital Signs Vitals Vital Signs Date Time Temp Pulse Resp B/P Pulse Ox O2 Delivery O2 Flow Rate FiO2 10/17/16 09:02 98.3 52 16 135/70 93 10/15/16 12:45 Room Air Intake and Output 10/16/16 10/16/16 10/17/16 15:00 23:00 07:00 Intake Total 2460 ml 1662 ml Balance 2460 ml 1662 ml Exam Constitutional: alert, oriented, well developed Psych: nl mood/affect, no complaints Head: atraumatic, normocephalic Eyes: EOMI, PERRL, nl conjunctiva, nl lids, nl sclera ENMT: nl external ears & nose, nl lips & teeth, nl nasal mucosa & septum Neck: non-tender, supple Respiratory: clear to auscultation, normal air movement Cardiovascular: nl pulses, regular rate and rhythm Gastrointestinal: nl liver, spleen, non-tender, soft Musculoskeletal: nl extremities to inspection, nl gait and stance Extremities: normal pulses Neurological: TUFTING MACHINE FIXER II-XII intact, nl mental status, nl speech, nl strength Skin: nl turgor, No rash or lesions Lymph: nl lymph nodes Results Result Diagram: 10/17/16 0441 10/17/16 0441 Results 24 hrs Laboratory Tests Test 10/17/16 04:41 White Blood Count 3.6 L Red Blood Count 3.32 L Hemoglobin 10.3 L Hematocrit 29.9 L Mean Corpuscular Volume 90.1 Mean Corpuscular Hemoglobin 31.0 Mean Corpuscular Hemoglobin Concent 34.4 Red Cell Distribution Width 13.6 Platelet Count 130 L Mean Platelet Volume 10.8 H Neutrophils % 53.1 Lymphocytes % 29.4 Monocytes % 11.9 H Eosinophils % 5.0 Basophils % 0.6 Nucleated Red Blood Cells % 0.0 Neutrophils # 1.9 Lymphocytes # 1.1 Monocytes # 0.4 Eosinophils # 0.2 Basophils # 0.0 Nucleated Red Blood Cells # 0.0 Sodium Level 144 Potassium Level 3.8 Chloride Level 104 Carbon Dioxide Level 28 Anion Gap 16 Blood Urea Nitrogen 7 Creatinine 0.71 Glucose Level 109 Calcium Level 8.6 Total Bilirubin 0.5 Direct Bilirubin 0.00 Indirect Bilirubin 0.5 Aspartate Amino Transf (AST/SGOT) 107 H Alanine Aminotransferase (ALT/SGPT) 112 H Alkaline Phosphatase 165 H Total Protein 6.2 Albumin 3.2 L Globulin 3.00 Albumin/Globulin Ratio 1.06 Medications Medications Current Medications Dextrose/Sodium Chloride (D5-1/2ns) 1,000 ml @ 75 mls/hr [id number] IV Last administered on 10/17/16 05:16; Admin Dose 75 MLS/HR; Start 10/14/16 at 00:45 Ondansetron HCl (Zofran Inj) 4 mg Q6H PRN IV NAUSEA AND/OR VOMITING; Start at 01:00 Acetaminophen (Tylenol Tab) 650 mg Q6H PRN PO PAIN LEVEL 1-3 OR FEVER; Start at 01:00 Docusate Sodium (Colace) 100 mg Q12H PRN PO CONSTIPATION; Start 10/14/16 at 01: 00 Magnesium Hydroxide (Milk Of Mag) 30 ml DAILY PRN PO CONSTIPATION; Start at 01:00 Pantoprazole (Protonix Iv) 40 mg DAILY@06 IV Last administered on 10/17/16 05: 16; Admin Dose 40 MG; Start 10/14/16 at 06:00 Polyethyl Glycol/ Propylene Glycol (Systane) 1 drop TID PRN BOTH EYES EYE LUBRICANT ; Start 10/15/16 at 19:00 Miscellaneous Information (*Order Clarification Bulletin) MEDICATION REQUIRES CLARIFICATION: Q8H XX ; Start 10/15/16 at 19:00 Latanoprost (Xalatan) 1 drop HS BOTH EYES Last administered on 10/16/16 20:35 ; Admin Dose 1 DROP; Start 10/15/16 at 21:00 Patient Own Medication 1 ea BID BOTH EYES Last administered on 10/17/16 08:55; Admin Dose 1 EA; Start 10/15/16 at 21:00 Morphine Sulfate (morphine) 2 mg Q4H PRN IV SEVERE PAIN LEVEL 7-10; Start 10/16 at 14:30 ELIZABETH BAUTISTA MD Oct 17, 2016 11:11
[2016-10-17 14:00] VITALS: BP 127/61; RESP 19
--- NOTE | 2016-10-17 15:33 | PN ---
Date/Time of Note Date/Time of Note DATE: 10/17/16 TIME: 15:32 Assessment/Plan Lines/Catheters IV Catheter Type (from [facility]): Peripheral IV Katz in Place (from [facility]): No Assessment/Plan Assessment/Plan [facility] Progress Note Date of Service: 10/17/2016 Place of service: [facility] fourth floor Today's Assessment & Plan: Hepatocellular carcinoma in the setting of cirrhosis. No new recommendations from surgical standpoint compared to yesterday. Unresectable due to portal hypertension and background cirrhosis. This is based on careful review of approximately 100 pages of outside medical records (see below for details). Eligible for local liver directed therapy in the form of transarterial chemoembolization (TACE). I will ask my office to start working on getting the patient set up (needs to be done outside of [facility] since we do not have the program set up yet). May benefit from oncology consultation , although sorafenib has only been shown to have an 8 week survival advantage compared to controls in randomized trials. GI bleed management per gastroenterology. No indication for acute surgical intervention. Explained to patient and answered all questions. Patient appeared to understand and agreed with the plans. With above assessment, I've recommended the followin. Continue current cares; okay from my standpoint to discharge when medically stable 2. Outpatient TACE (I will ask my office to start the process) 3. Treat gastrointestinal bleeding per gastroenterology 4. Multidisciplinary tumor board presentation 5. Patient should be maintained on broad-spectrum antimicrobial therapy while concerns for upper GI bleeding exists Thank you very much for having me involved in the care of this very pleasant patient and wonderful family. If you have any questions, please feel free to contact me at [phone]. Nature of presenting problem: High severity Please note that, given the extensive number of diagnoses or management options , the extensive amount and/or complexity of data needed to be reviewed, and high risk of complications and/or morbidity or mortality, this qualifies as high complexity type of decision-making. Disclaimer: Inadvertent spelling and grammatical errors are likely due to EHR/ dictation software use and do not reflect on the quality of delivered patient care. Also, please note that the electronic time recorded on this node does not necessarily reflect the actual time of the visit. Updated clinical summary: A very-pleasant 66-year-old lady with multiple comorbid issues including prior liver resection for malignancy, presenting with upper GI bleeding and mass in the liver. Elevated alpha-fetoprotein 3180. Comorbidities: 1. History of liver mass and cirrhosis: initial reported symptoms 09/18/2013 to [facility] emergency department; ultrasound showing liver cirrhosis with 3 cm liver mass concerning for hepatocellular carcinoma. Also issues with gallbladder wall thickening without cholelithiasis or sonographic Power sign. Pelvic CT and abdominal CT 09/17/2013: cirrhotic liver with heterogeneously enhancing approximately 3.3 cm fat-containing mass in the inferior right hepatic lobe. [facility] 11/21/2013: Laparoscopic biopsy of liver mass 2, negative for malignancy per report (attending Laurel Mcgarry MD; manufacturing assistant Fabiola Randolph MD); [facility] 03/25/2014: Wedge resection right hepatic lobe segment 6 mass 2 with intraoperative ultrasound (attending Laurel Mcgarry MD; manufacturing assistant Cami Leyva MD); operative report indicated that there was a 3 mass in segment 4 of the liver on the preoperative workup which was not identified on ultrasound (presumably intraoperative ultrasound). EBL 1200 cc. Preop alpha-fetoprotein 3.21 March 2014. Final pathology showed well-differentiated hepatocellular carcinoma with 1 cm negative margins. No lymphovascular invasion. No perineural invasion. Glypican 3 focally weakly positive; CD34 positive; AFB negative; TTF-1 and HSA positive in cytoplasm. Loss reticulin fibers in the tumor. Stage PT2PNX. Additional finding of severe fibrosis and cirrhosis with high-grade dysplastic nodule and extensive steatosis. Total of 2 masses size 3 x 2.5 x 2.5 cm and 2 x 1.8 x 1.5 cm. 2. Coronary artery disease 3. Hypercholesterolemia 4. Hypertension 5. Severe anemia 6. Report of liver cirrhosis 7. Status post colonoscopy with removal polyp 8. GI bleeding with positive stool occult test 9. Glaucoma 10. Arthritis 11. Family history significant for mother with hypertension, Alzheimer's disease, and congestive heart failure. Sister with breast cancer at age 48. Nephew with benign brain tumor. Subjective: No major events or complaints; no major abd pain and under control with medications; no n/v/d; no sob or cp; + flatus; + BM and normal; + activity Objective: Vitals: See below I's & O's: See below Exam: GENERAL: On exam, the patient was sitting up in her bed and eating a regular breakfast and appeared to be comfortable and in no acute distress. ABDOMEN: Soft, nontender and nondistended. There are no peritoneal signs or guarding. SKIN: Skin appears to be pink and feels warm to touch. NEUROLOGIC: Patient is awake, alert, and follows commands appropriately. Labs: See below Exam/Review of Systems Vital Signs Vitals Vital Signs Date Time Temp Pulse Resp B/P Pulse Ox O2 Delivery O2 Flow Rate FiO2 10/17/16 14:00 98.0 71 19 127/61 98 10/15/16 12:45 Room Air Intake and Output 10/16/16 10/16/16 10/17/16 15:00 23:00 07:00 Intake Total 2460 ml 1662 ml Balance 2460 ml 1662 ml Results Result Diagram: 10/17/16 0441 10/17/16 0441 HIMANSHU VAZQUEZ M.D. Oct 17, 2016 15:33
--- NOTE | 2016-10-17 17:18 | PDOCDIS ---
Discharge Instructions CONDITION Patient Condition: Stable HOME CARE INSTRUCTIONS: Diet Instructions: 2gm Na ACTIVITY: Activity Restrictions: Slowly Increase Activity FOLLOW UP/APPOINTMENTS Follow-up Plan F/U OWN PCP [address] BAUTISTA [address] MARTINEZ [address] REGALADO 1 WK ENOCH SINCLAIR MD Oct 17, 2016 17:18
[2016-10-17] MEDS ORDERED: DOCU-216 PO (17:21)
[2016-10-17] MEDS ORDERED: PANT40TA3 PO (17:21)
--- NOTE | 2016-10-17 17:28 | CONS ---
Date/Time of Note Date/Time of Note DATE: 10/17/16 TIME: 17:05 Assessment/Plan Assessment/Plan Chief Complaint/Hosp Course 66 yo female with recurrent Hepatocellular carcinoma in the setting of cirrhosis and portal HTN. She now presents with a 8cm mass hypervascular mass right lobe of the liver. #HCC -agree that TACE is the best option for the patient at this point given she is not a surgical candidate -if TACE is not an option we can consider other options such as Sorafenib or second line Regorafenib, both of which have some overall survival data for unresectable HCC. # Anemia -will check iron panel -start pt on IV iron given acute blood loss. Problems: Consultation Date/Type/Reason Admit Date/Time Oct 13, 2016 at 21:47 Date of Consultation: Oct 17, 2016 Type of Consultation: oncology Reason for Consultation HCC Referring Provider: ENOCH SINCLAIR Hx of Present Illness 66-year-old lady with multiple medical problems including prior h/o HCC comorbid issues including prior liver resection who now, presents with upper GI bleeding and mass in the liver. Pt has been seen by GI and has been started on B Kevin and PPI. She currently is no longer clinically bleeding. In terms of her liver mass and cirrhosis, pt was initially diagnosed in 09/2013 at [facility] with a 3cm liver mass concerning for HCC. In 11/2013 pt underwent laparoscopic biopsy of liver mass 2, which was initally negative for malignancy. Pt then underwent wedge resection right hepatic lobe segment in Mar 2014 whose final pathology demonstrated showed well-differentiated hepatocellular carcinoma with 1 cm negative margins. No lymphovascular invasion. No perineural invasion. Glypican 3 focally weakly positive; CD34 positive; AFB negative; TTF-1 and HSA positive in cytoplasm. Loss reticulin fibers in the tumor. Stage PT2PNX. Additional finding of severe fibrosis and cirrhosis with high-grade dysplastic nodule and extensive steatosis. Total of 2 masses size 3 x 2.5 x 2.5 cm and 2 x 1.8 x 1.5 cm. Given the GI bleed and h/o HCC pt had a CT A/P done which revealed a Large heterogeneously enhancing hypervascular mass right lobe of the liver which does not demonstrate enhancement pattern typical for hemangioma. This is suspicious for a hepatoma. AFP was done and resulted at 3180 confirming recurrent disease. Pt has been seen by Hepatobiliary surgery who has recommended TACE. Pt is not a surgical candidate at this time. Constitutional: improved, no complaints Eyes: no complaints ENT: no complaints Respiratory: no complaints Cardiovascular: no complaints Gastrointestinal: no complaints, No blood Genitourinary: bleeding, no complaints, No discharge, No dysuria, No flank pain, No hematuria, No other Musculoskeletal: back pain, bone/joint pain, No neck pain, No no complaints, No other, No restricted range of motion, No swelling Skin: no complaints Neurologic: no complaints Psychological: nl mood/affect, no complaints Past Medical History Medical History: coronary artery disease, high cholesterol, hypertension, other (liver cancer) Past Surgical History Past Surgical Hx: cholecystectomy, other (s/p liver lesion (cancerous) removal , open cheolecystectomy, both 2013) Social History Alcohol Use: none Smoking Status: Never smoker Drug Use: none Exam/Review of Systems Vital Signs Vitals Vital Signs Date Time Temp Pulse Resp B/P Pulse Ox O2 Delivery O2 Flow Rate FiO2 10/17/16 14:00 98.0 71 19 127/61 98 10/15/16 12:45 Room Air Intake and Output 10/16/16 10/16/16 10/17/16 15:00 23:00 07:00 Intake Total 2460 ml 1662 ml Balance 2460 ml 1662 ml Exam Constitutional: alert, oriented Psych: no complaints Head: atraumatic, normocephalic Eyes: nl conjunctiva ENMT: nl external ears & nose Neck: non-tender, supple Respiratory: clear to auscultation, normal air movement Cardiovascular: regular rate and rhythm Gastrointestinal: soft Musculoskeletal: nl extremities to inspection, nl gait and stance Results Result Diagram: 10/17/1644010/17/16440 Results 24 hrs Laboratory Tests Test 10/17/16 04:41 White Blood Count 3.6 L Red Blood Count 3.32 L Hemoglobin 10.3 L Hematocrit 29.9 L Mean Corpuscular Volume 90.1 Mean Corpuscular Hemoglobin 31.0 Mean Corpuscular Hemoglobin Concent 34.4 Red Cell Distribution Width 13.6 Platelet Count 130 L Mean Platelet Volume 10.8 H Neutrophils % 53.1 Lymphocytes % 29.4 Monocytes % 11.9 H Eosinophils % 5.0 Basophils % 0.6 Nucleated Red Blood Cells % 0.0 Neutrophils # 1.9 Lymphocytes # 1.1 Monocytes # 0.4 Eosinophils # 0.2 Basophils # 0.0 Nucleated Red Blood Cells # 0.0 Sodium Level 144 Potassium Level 3.8 Chloride Level 104 Carbon Dioxide Level 28 Anion Gap 16 Blood Urea Nitrogen 7 Creatinine 0.71 Glucose Level 109 Calcium Level 8.6 Total Bilirubin 0.5 Direct Bilirubin 0.00 Indirect Bilirubin 0.5 Aspartate Amino Transf (AST/SGOT) 107 H Alanine Aminotransferase (ALT/SGPT) 112 H Alkaline Phosphatase 165 H Total Protein 6.2 Albumin 3.2 L Globulin 3.00 Albumin/Globulin Ratio 1.06 Medications Medications Current Medications Dextrose/Sodium Chloride (D5-1/2ns) 1,000 ml @ 75 mls/hr [id number] IV Last administered on 10/17/16 05:16; Admin Dose 75 MLS/HR; Start 10/14/16 at 00:45 Ondansetron HCl (Zofran Inj) 4 mg Q6H PRN IV NAUSEA AND/OR VOMITING; Start at 01:00 Acetaminophen (Tylenol Tab) 650 mg Q6H PRN PO PAIN LEVEL 1-3 OR FEVER; Start at 01:00 Docusate Sodium (Colace) 100 mg Q12H PRN PO CONSTIPATION; Start 10/14/16 at 01: 00 Magnesium Hydroxide (Milk Of Mag) 30 ml DAILY PRN PO CONSTIPATION; Start at 01:00 Pantoprazole (Protonix Iv) 40 mg DAILY@06 IV Last administered on 10/17/16 05: 16; Admin Dose 40 MG; Start 10/14/16 at 06:00 Polyethyl Glycol/ Propylene Glycol (Systane) 1 drop TID PRN BOTH EYES EYE LUBRICANT ; Start 10/15/16 at 19:00 Miscellaneous Information (*Order Clarification Bulletin) MEDICATION REQUIRES CLARIFICATION: Q8H XX ; Start 10/15/16 at 19:00 Latanoprost (Xalatan) 1 drop HS BOTH EYES Last administered on 10/16/16 20:35 ; Admin Dose 1 DROP; Start 10/15/16 at 21:00 Patient Own Medication 1 ea BID BOTH EYES Last administered on 10/17/16 08:55; Admin Dose 1 EA; Start 10/15/16 at 21:00 Morphine Sulfate (morphine) 2 mg Q4H PRN IV SEVERE PAIN LEVEL 7-10; Start 10/16 at 14:30 BRIDGETTE REGALADO M.D. Oct 17, 2016 17:15
--- NOTE | 2016-10-17 17:39 | PN ---
Date/Time of Note Date/Time of Note DATE: 10/17/16 TIME: 17:38 Assessment/Plan VTE Prophylaxis VTE Prophylaxis Intervention: other Lines/Catheters IV Catheter Type (from Nrs): Peripheral IV Urinary Cath still in place: No Assessment/Plan Chief Complaint/Hosp Course GI BLEED STABLE ANEMIA LIVER MASS HEPATOCELLULAR CARCINOMA HIGH ALPHA FETOPROTEIN PLAN PER GI DR REGALADO TO SEE Problems: Subjective 24 Hr Interval Summary Cardiovascular: no complaints Gastrointestinal: no complaints Exam/Review of Systems Vital Signs Vitals Vital Signs Date Time Temp Pulse Resp B/P Pulse Ox O2 Delivery O2 Flow Rate FiO2 10/17/16 14:00 98.0 71 19 127/61 98 10/15/16 12:45 Room Air Intake and Output 10/16/16 10/16/16 10/17/16 15:00 23:00 07:00 Intake Total 2460 ml 1662 ml Balance 2460 ml 1662 ml Exam Respiratory: clear to auscultation Cardiovascular: regular rate and rhythm Gastrointestinal: soft Musculoskeletal: nl extremities to inspection Extremities: normal pulses Results Result Diagram: 10/17/16 0441 10/17/16 0441 Results 24 hrs Laboratory Tests Test 10/17/16 04:41 White Blood Count 3.6 L Red Blood Count 3.32 L Hemoglobin 10.3 L Hematocrit 29.9 L Mean Corpuscular Volume 90.1 Mean Corpuscular Hemoglobin 31.0 Mean Corpuscular Hemoglobin Concent 34.4 Red Cell Distribution Width 13.6 Platelet Count 130 L Mean Platelet Volume 10.8 H Neutrophils % 53.1 Lymphocytes % 29.4 Monocytes % 11.9 H Eosinophils % 5.0 Basophils % 0.6 Nucleated Red Blood Cells % 0.0 Neutrophils # 1.9 Lymphocytes # 1.1 Monocytes # 0.4 Eosinophils # 0.2 Basophils # 0.0 Nucleated Red Blood Cells # 0.0 Sodium Level 144 Potassium Level 3.8 Chloride Level 104 Carbon Dioxide Level 28 Anion Gap 16 Blood Urea Nitrogen 7 Creatinine 0.71 Glucose Level 109 Calcium Level 8.6 Total Bilirubin 0.5 Direct Bilirubin 0.00 Indirect Bilirubin 0.5 Aspartate Amino Transf (AST/SGOT) 107 H Alanine Aminotransferase (ALT/SGPT) 112 H Alkaline Phosphatase 165 H Total Protein 6.2 Albumin 3.2 L Globulin 3.00 Albumin/Globulin Ratio 1.06 Medications Medications Current Medications Dextrose/Sodium Chloride (D5-1/2ns) 1,000 ml @ 75 mls/hr [id number] IV Last administered on 10/17/16 05:16; Admin Dose 75 MLS/HR; Start 10/14/16 at 00:45 Ondansetron HCl (Zofran Inj) 4 mg Q6H PRN IV NAUSEA AND/OR VOMITING; Start at 01:00 Acetaminophen (Tylenol Tab) 650 mg Q6H PRN PO PAIN LEVEL 1-3 OR FEVER; Start at 01:00 Docusate Sodium (Colace) 100 mg Q12H PRN PO CONSTIPATION; Start 10/14/16 at 01: 00 Magnesium Hydroxide (Milk Of Mag) 30 ml DAILY PRN PO CONSTIPATION; Start at 01:00 Pantoprazole (Protonix Iv) 40 mg DAILY@06 IV Last administered on 10/17/16 05: 16; Admin Dose 40 MG; Start 10/14/16 at 06:00 Polyethyl Glycol/ Propylene Glycol (Systane) 1 drop TID PRN BOTH EYES EYE LUBRICANT ; Start 10/15/16 at 19:00 Miscellaneous Information (*Order Clarification Bulletin) MEDICATION REQUIRES CLARIFICATION: Q8H XX ; Start 10/15/16 at 19:00 Latanoprost (Xalatan) 1 drop HS BOTH EYES Last administered on 10/16/16 20:35 ; Admin Dose 1 DROP; Start 10/15/16 at 21:00 Patient Own Medication 1 ea BID BOTH EYES Last administered on 10/17/16 08:55; Admin Dose 1 EA; Start 10/15/16 at 21:00 Morphine Sulfate 2 mg 2 mg Q4H PRN IV SEVERE PAIN LEVEL 7-10; Start 10/16/16 at 14:30 Ferric Sodium Gluconate Complex/ Sodium Chloride (Ferrlecit/NS) 110 ml @ 100 mls/hr Q24H IVPB ; Start 10/17/16 at 17:30; Stop 10/19/16 at 18:35; Status ENOCH MESSINA MD Oct 17, 2016 17:38
[2016-10-17 18:02] LABS: IRON 35 ug/dl (35-150)
[2016-10-17 18:12] LABS: TOTAL IRON BINDING CAPACITY 351 ug/dl (241-421)
[2016-10-17] MEDS ORDERED: SOD FERRIC GLUC COMPLX 125 MG in SOD CHLORIDE 0.9% 100 ML IVPB SCH (18:30)
[2016-10-17 19:42] VITALS: BP 130/62; PULSE 74; RESP 18
--- NOTE | 2016-10-18 06:28 | GILP ---
DATE OF PROCEDURE: 10/17/2016 INDICATION: A 66-year-old female undergoing this procedure for GI bleeding, manifested in the form of hematemesis and melanotic stools. The risks of the procedure, related and unrelated complications, anesthetic risks, and alternatives discussed. Informed consent was obtained. DESCRIPTION OF PROCEDURE: The patient was brought to the GI lab, sedated by the anesthesiologist. After optimal sedation, scope was passed much into the esophagus. This was grossly within normal limits. The stomach mucosa revealed congestive gastropathy. On retroflexion, the gastric varicose vein close to the GE junction identified. No altered blood was seen. Duodenal, 1st and 2nd part, was within normal limits. The scope was straightened out and removed with good patient tolerance. IMPRESSION: 1. Normal esophagus without any varicose vein in the esophagus. 2. Gastric varicose vein, which may be the cause of her bleeding. 3. Congestive gastropathy. 4. Normal duodenum. 5. No evidence of active bleeding or altered blood seen. PLAN: 1. Obtain CAT scan of the abdomen and pelvis to make sure there is no splenic vein thrombosis. 2. The patient will need a beta escobar to reduce the portal pressure, nonselective beta escobar. If the patient rebleeds, then the best option will be for a [____] injection at [facility] or to embolize the gastric varicose vein. Dictated By: Silvio Sevilla MD /[email or web address]/bc /Document#: [id number]
== END 2016-10-17 20:38 | disposition home or self-care (01) | DRG 300 ==
LOC: E/R 19:15 → TEL 21:47 → MS1 10-14 01:37
PROVIDERS: ADMIT Internal Medicine Nephrology; ATTEND Internal Medicine Nephrology
PROC: 30233N1 Transfusion of Nonautologous Red Blood Cells into Peripheral Vein, Percutaneous Approach (ICD-10-PCS; 2016-10-14)
PROC: 0DJ08ZZ Inspection of Upper Intestinal Tract, Via Natural or Artificial Opening Endoscopic (ICD-10-PCS; principal; 2016-10-17)
DX: I86.4 Gastric varices (principal); K92.0 Hematemesis; C22.0 Liver cell carcinoma; K76.6 Portal hypertension; D62 Acute posthemorrhagic anemia; K74.60 Unspecified cirrhosis of liver; K92.1 Melena; I10 Essential (primary) hypertension; K31.9 Disease of stomach and duodenum, unspecified; Z90.49 Acquired absence of other specified parts of digestive tract; Z85.05 Personal history of malignant neoplasm of liver; E66.9 Obesity, unspecified; I25.10 Atherosclerotic heart disease of native coronary artery without angina pectoris; E78.00 Pure hypercholesterolemia, unspecified; H40.9 Unspecified glaucoma
CPT/HCPCS: 36415; 36430; 71010; 74178; 76705; 80048; 80053; 82105; 82270; 82728; 83540; 83690; 84484; 85025; 85610; 85730; 86850; 86900; 86901; 86920; 93005; 96374; 96375; 96376; C9113; J0696; J2354; J2916; J7040; J7042; P9016; Q9967

== ENCOUNTER 2016-12-04 10:41 | Outpatient (CLI) | payer OTHER ==
[~2016-12-04] VITALS: Ht 152.4 cm; Wt 72.7 kg
[~2016-12-04 10:41] MED LIST changes: +BIMA2.5D BOTH EYES; +CHOL500010 PO; +DOCU-216 PO; +GINK120T3 PO; +KETO5DRO59 OP; +MULTI PO; -NO MEDS; +OMEG-135 PO; +PANT40TA3 PO; +PROP10DR3 BOTH EYES; +VIT1TABL46 PO
[2016-12-04 10:55] VITALS: BP 134/66; PULSE 80; RESP 16; Ht 152.4 cm; Wt 72.7 kg
[2016-12-04] MEDS ORDERED: HYDR-3011 PO (11:04)
--- NOTE | 2016-12-04 12:05 | PN ---
Date/Time of Note Date/Time of Note DATE: 12/04/16 TIME: 11:51 Assessment/Plan Assessment/Plan Assessment/Plan [facility] Progress Note Date of Service: 12/04/2016 Place of service: [facility] fourth floor Today's Assessment & Plan: Hepatocellular carcinoma in the setting of cirrhosis. Unresectable due to portal hypertension and background cirrhosis. This is based on careful review of approximately 100 pages of outside medical records (see below for details). Also currently ineligible for liver transplant even the size of the lesion (8 cm x 10 cm). Eligible for local liver directed therapy in the form of transarterial chemoembolization (TACE) and radioembolization. I will ask my office to start working on getting the patient set up. Patient should also follow-up with Dr. Wilson who she reported to have a relationship for oncology consultation. No indication for acute surgical intervention. Explained to patient and her nephew and answered all questions. Patient and family appeared to understand and agreed with the plans. With above assessment, I've recommended the followin. Continue plans for TACE (I will ask my office to assist with the process) 2. F/u with Dr. Marks for oncology consultation 3. F/u with GI for history of recent gastrointestinal bleeding 4. Needs relationship with a medical research assistant 5. Multidisciplinary tumor board presentation Thank you very much for having me involved in the care of this very pleasant patient and wonderful family. If you have any questions, please feel free to contact me at [phone]. Nature of presenting problem: High severity Please note that, given the extensive number of diagnoses or management options , the extensive amount and/or complexity of data needed to be reviewed, and high risk of complications and/or morbidity or mortality, this qualifies as high complexity type of decision-making. Disclaimer: Inadvertent spelling and grammatical errors are likely due to EHR/ dictation software use and do not reflect on the quality of delivered patient care. Also, please note that the electronic time recorded on this node does not necessarily reflect the actual time of the visit. Updated clinical summary: A very-pleasant 66-year-old lady with multiple comorbid issues including prior liver resection for malignancy, presenting with upper GI bleeding and mass in the liver. Elevated alpha-fetoprotein 3180. Comorbidities: 1. History of liver mass and cirrhosis: initial reported symptoms 09/18/2013 to [facility] emergency department; ultrasound showing liver cirrhosis with 3 cm liver mass concerning for hepatocellular carcinoma. Also issues with gallbladder wall thickening without cholelithiasis or sonographic Power sign. Pelvic CT and abdominal CT 09/17/2013: cirrhotic liver with heterogeneously enhancing approximately 3.3 cm fat-containing mass in the inferior right hepatic lobe. [facility] 11/21/2013: Laparoscopic biopsy of liver mass 2, negative for malignancy per report (attending Laurel Mcgarry MD; assistant professor of education Fabiola Randolph MD); [facility] 03/25/2014: Wedge resection right hepatic lobe segment 6 mass 2 with intraoperative ultrasound (attending Laurel Mcgarry MD; assistant professor of education Cami Leyva MD); operative report indicated that there was a 3 mass in segment 4 of the liver on the preoperative workup which was not identified on ultrasound (presumably intraoperative ultrasound). EBL 1200 cc. Preop alpha-fetoprotein 3.21 March 2014. Final pathology showed well-differentiated hepatocellular carcinoma with 1 cm negative margins. No lymphovascular invasion. No perineural invasion. Glypican 3 focally weakly positive; CD34 positive; AFB negative; TTF-1 and HSA positive in cytoplasm. Loss reticulin fibers in the tumor. Stage [id number]. Additional finding of severe fibrosis and cirrhosis with high-grade dysplastic nodule and extensive steatosis. Total of 2 masses size 3 x 2.5 x 2.5 cm and 2 x 1.[address] abd/pelvis 10/05/16 [facility] IMPRESSION: Large 8.5 cm noncalcified mixed attenuation mass centered in the anterior segment of the left lobe of the liver, heterogeneously enhancing hypervascular mass right lobe of the liver which does not demonstrate enhancement pattern typical for hemangioma. This is suspicious for a hepatoma. 2. Coronary artery disease 3. Hypercholesterolemia 4. Hypertension 5. Severe anemia 6. Report of liver cirrhosis 7. Status post colonoscopy with removal polyp 8. GI bleeding with positive stool occult test 9. Glaucoma 10. Arthritis 11. Family history significant for mother with hypertension, Alzheimer's disease, and congestive heart failure. Sister with breast cancer at age 48. Nephew with benign brain tumor. Subjective: No major events or complaints since discharge; no major abd pain and under control with medications; no n/v/d; no sob or cp; + flatus; + BM and normal; + activity Objective: Vitals: See below Exam: GENERAL: On exam, the patient was sitting up in a chair and appeared to be comfortable and in no acute distress. ABDOMEN: Soft, nontender and nondistended. There are no peritoneal signs or guarding. SKIN: Skin appears to be pink and feels warm to touch. NEUROLOGIC: Patient is awake, alert, and follows commands appropriately. Exam/Review of Systems Vital Signs Vitals Vital Signs Date Time Temp Pulse Resp B/P Pulse Ox O2 Delivery O2 Flow Rate FiO2 12/04/16 10:55 98.1 80 16 134/66 97 Room Air HIMANSHU VAZQUEZ M.D. Dec 04, 2016 12:02
== END 2016-12-04 16:14 | disposition home or self-care (01) ==
LOC: HPC 10:41
PROVIDERS: ATTEND Transplant Surgery
DX: C22.0 Liver cell carcinoma (principal); K74.60 Unspecified cirrhosis of liver; I10 Essential (primary) hypertension; I25.10 Atherosclerotic heart disease of native coronary artery without angina pectoris; E78.00 Pure hypercholesterolemia, unspecified; D64.9 Anemia, unspecified; H40.9 Unspecified glaucoma; M19.90 Unspecified osteoarthritis, unspecified site; Z82.49 Family history of ischemic heart disease and other diseases of the circulatory system; Z80.3 Family history of malignant neoplasm of breast; Z82.0 Family history of epilepsy and other diseases of the nervous system
CPT/HCPCS: G0463

== ENCOUNTER 2017-05-18 13:54 | Inpatient (IN) | END 2017-05-22 16:07 | disposition home or self-care (01) | DRG 378 ==

== ENCOUNTER 2017-05-27 20:53 | Inpatient (IN) | END 2017-05-30 17:16 | disposition home or self-care (01) | DRG 378 ==